=== PATIENT | female | born 1975 | race Caucasian/White ===

== ENCOUNTER → 2017-02-03 | Outpatient (CLI) | payer BC ==
[2017-02-03 09:51] LABS: ALT/SGPT 21 U/L (12-78); BLOOD UREA NITROGEN 14 mg/dl (7-18); BUN/CREATININE RATIO 18.1 (10-20); CALCIUM 8.9 mg/dl (8.5-10.1); CARBON DIOXIDE 25 mmol/L (21-32); CHLORIDE 106 mmol/L (98-107); CHOLESTEROL 198 mg/dl (0-200); CREATININE 0.78 mg/dl (0.60-1.20); GLUCOSE 88 mg/dl (70-99); POTASSIUM 4.1 mmol/L (3.5-5.1); SODIUM 141 mmol/L (136-145); TRIGLYCERIDES 80 mg/dl (0-150); VERY LOW DENSITY LIPOPROT CALC 16 mg/dl
[2017-02-03 10:02] LABS: ALB/GLOB RATIO 1.2 (0.9-2); ALKALINE PHOSPHATASE 57 U/L (45-117); AST/SGOT 15 U/L (15-37); CHOLESTEROL/HDL RATIO 3.2; HDL CHOLESTEROL 62 mg/dl; LDL CHOLESTEROL CALCULATED 120 mg/dl
== END | disposition home or self-care (01) ==
LOC: C.LAB1850 06:58
PROVIDERS: ATTEND Nurse Practitioner Family
DX: R63.5 Abnormal weight gain (principal); F41.9 Anxiety disorder, unspecified; Z13.220 Encounter for screening for lipoid disorders

== ENCOUNTER → 2017-04-09 | Outpatient (CLI) | payer BC ==
--- NOTE | 2017-04-10 14:06 | MAMMOGRAPHY REPORT ---
BILATERAL FIRST EVER DIGITAL SCREENING MAMMOGRAM TOMOSYNTHESIS WITH CAD: 04/09/2017 CLINICAL HISTORY: Baseline examination. TECHNIQUE: Breast tomosynthesis in addition to standard 2D mammography was performed. Current study was also evaluated with a Computer Aided Detection (CAD) system. COMPARISON: No prior exams were available for comparison. BREAST COMPOSITION: The tissue of both breasts is heterogeneously dense, which may obscure small ma sses. FINDINGS: No suspicious masses, calcifications, or areas of architectural distortion are noted in e ither breast. IMPRESSION: ACR BI-RADS CATEGORY 1: NEGATIVE There is no mammographic evidence of malignancy. A 1 year screening mammogram is recommended. The p atient will receive written notification of the results. Approximately 10% of breast cancers are not detected with mammography. A negative mammographic repor t should not delay biopsy if a clinically suggestive mass is present. Zayda Sanches M.D. ah/:04/09/2017 15:58:04 Camp Nurse: Adam HERNANDEZ)(Minda), [facility] letter sent: Normal 1/2 BI-RADS Code: ACR BI-RADS Category 1: Negative
== END | disposition home or self-care (01) ==
LOC: C.MAMM 14:56
PROVIDERS: ATTEND Nurse Practitioner Family
DX: Z12.31 Encounter for screening mammogram for malignant neoplasm of breast (principal)

== ENCOUNTER → 2017-04-29 | Outpatient (CLI) | payer BC | END | disposition home or self-care (01) | LOC: C.PAPS 11:23 | PROVIDERS: ATTEND Nurse Practitioner | DX: Z01.419 Encounter for gynecological examination (general) (routine) without abnormal findings (principal) ==